=== PATIENT | female | born 2000 | race Caucasian/White ===

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

== ENCOUNTER 2020-04-22 11:35 | Inpatient (IN) | payer MEDICAID ==
[~2020-04-22] VITALS: Ht 157.5 cm; Wt 68.9 kg
[2020-04-22 12:00] VITALS: BP 140/90
[2020-04-22] MEDS ORDERED: LACTATED RINGERS 1,000 ML IV SCH (12:15)
[2020-04-22] MEDS ORDERED: BETAMETH ACET/BETAMETH NA PH 30 MG/5 ML VIAL IM SCH (12:15)
[2020-04-22] MEDS ORDERED: AMPICILLIN 2,000 MG in NACL 0.9% 100 ML IV SCH ×2 (12:15→12:22)
[2020-04-22] MEDS ORDERED: BETAMETH ACET/BETAMETH NA PH 30 MG/5 ML VIAL IM ONE (12:23)
[2020-04-22] MEDS ORDERED: AMPICILLIN 2,000 MG VIAL ONE (12:26)
[2020-04-22] MEDS ORDERED: MAG SULF 2000 MG/WATER PREMIX 100 ML IV ONE (12:34)
[2020-04-22] MEDS ORDERED: MAG SULF 20 GM/H2O PREMIX DRIP 500 ML IV SCH (12:35)
[2020-04-22] MEDS ORDERED: MAG SULF 2000 MG/WATER PREMIX 100 ML IV SCH (12:35)
[2020-04-22] MEDS ORDERED: NALBUPHINE 10 MG/ML AMP IVP PRN (12:50)
[2020-04-22] MEDS ORDERED: PROMETHAZINE 25 MG/ML VIAL ONE (12:51)
[2020-04-22] MEDS ORDERED: NALBUPHINE 10 MG/ML AMP ONE (12:51)
[2020-04-22] MEDS ORDERED: OXYTOCIN 20 UNITS/LR PREMIX 1,000 ML IV ONE (13:03)
[2020-04-22] MEDS ORDERED: PROMETHAZINE 25 MG/ML VIAL IM PRN (13:45)
[2020-04-22] MEDS ORDERED: OXYTOCIN 20 UNITS in LACTATED RINGERS 1,000 ML IV SCH (13:45)
[2020-04-22] MEDS ORDERED: METHYLERGONOVINE 0.2 MG/ML AMP IM PRN (14:10)
[2020-04-22] MEDS ORDERED: HYDROcodone/APAP 5/325 MG 1 TAB TAB PO PRN (14:10)
[2020-04-22] MEDS ORDERED: oxyCODONE/APAP 5/325 MG 1 TAB TAB PO PRN (14:10)
[2020-04-22] MEDS ORDERED: OXYTOCIN 10 UNITS/ML VIAL IM PRN (14:10)
[2020-04-22] MEDS ORDERED: IBUPROFEN 800 MG TAB PO PRN (14:10)
[2020-04-22] MEDS ORDERED: SODIUM PHOSPHATE 118 ML ENEM RC PRN (14:10)
[2020-04-22] MEDS ORDERED: TEMAZEPAM 15 MG CAP PO PRN (14:10)
[2020-04-22] MEDS ORDERED: BENZOCAINE/MENTHOL 20%-0.5% 60 GM CAN TP PRN (14:10)
[2020-04-22] MEDS ORDERED: METHYLERGONOVINE 0.2 MG TAB PO PRN (14:10)
[2020-04-22 14:23] LABS: ANION GAP 11.2 (8-16); BASOPHILS # (AUTO) 0.1 K/uL (0.00-0.22); BASOPHILS % (AUTO) 0.5 % (0.0-2.0); CARBON DIOXIDE 22.7 mmol/L (21-32); CREATININE 0.5 mg/dL (0.6-1.3); EOSINOPHILS # (AUTO) 0.1 K/uL (0-0.4); EOSINOPHILS % (AUTO) 0.5 % (0.0-4.0); HEMATOCRIT 28.1 % (36-48); LYMPHOCYTES # (AUTO) 1.5 K/uL (2.5-16.5); LYMPHOCYTES % (AUTO) 11.4 % (20.5-51.1); MEAN CORPUSCULAR HEMOGLOBIN 24 pg (27-31); MEAN CORPUSCULAR HGB CONC 32 g/dL (33-37); MEAN CORPUSCULAR VOLUME 73.7 fL (80-94); MONOCYTES # (AUTO) 0.5 K/uL (0.8-1.0); MONOCYTES % (AUTO) 3.5 % (1.7-9.3); NEUTROPHILS # (AUTO) 11.3 K/uL (1.8-7.7); NEUTROPHILS % (AUTO) 84.1 % (42.2-75.2); PLATELET COUNT (AUTO) 207 K/uL (140-450); POTASSIUM 3.9 mmol/L (3.5-5.1); RED BLOOD CELL COUNT(AUTO) 3.81 MIL/uL (4.20-5.40); RED CELL DISTRIBUTION WIDTH 17.9 % (11.6-13.7); WHITE BLOOD COUNT (AUTO) 13.5 K/uL (4.8-10.8)
[2020-04-22 14:39] LABS: ALBUMIN 2.4 g/dL (3.4-5.0); TOTAL BILIRUBIN 0.3 mg/dL (0.0-1.0)
[2020-04-22 15:21] LABS: APPEARANCE,URINE CLEAR (CLEAR); BILIRUBIN,URINE NEGATIVE (NEGATIVE); BLOOD, URINE NEGATIVE (NEGATIVE); COLOR,URINE YELLOW (YELLOW); LEUKOCYTE ESTERASE ,URINE NEGATIVE (NEGATIVE); NITRITE, URINE NEGATIVE (NEGATIVE); UGLUCOSE NEGATIVE (NEGATIVE)
[2020-04-22 15:43] LABS: BARBITURATE, URINE NEGATIVE ng/ml (NEG <=200); BENZODIAZEPINE, URINE NEGATIVE ng/mL (NEG <=200); CANNABINOID, URINE NEGATIVE ng/mL (NEG <=50); COCAINE, URINE NEGATIVE ng/mL (NEG <=300); OPIATE, URINE NEGATIVE ng/mL (NEG <=2000); PHENCYCLIDINE SCREEN,URINE NEGATIVE ng/mL (NEG <=25)
[2020-04-22] MEDS ORDERED: AMPICILLIN 1,000 MG in NACL 0.9% 50 ML IV SCH (16:00)
[2020-04-22] MEDS ORDERED: DOCUSATE SOD/SENNA 50/8.6 MG 1 TAB PO SCH (21:00)
[2020-04-23 06:03] LABS: HEMATOCRIT 25.5 % (36-48); HEMOGLOBIN 8.3 g/dL (12.0-16.0)
--- NOTE | 2020-04-23 08:27 | NUR ---
PATIENT HAS BEEN SCREENED AND CATEGORIZED LOW NUTRITION RISK. PATIENT WILL BE SEEN WITHIN 7 DAYS OF ADMISSION. 04/29/[address]
[2020-04-23 09:52] LABS: RAPID PLASMA REAGIN NON-REACTIVE (Non Reactiv)
== END 2020-04-23 11:10 | disposition home or self-care (01) | DRG 560 ==
LOC: MFCC 11:35 → OBSVTOIN 13:28
PROVIDERS: ADMIT Obstetrics & Gynecology; ATTEND Obstetrics & Gynecology
PROC: 10E0XZZ Delivery of Products of Conception, External Approach (ICD-10-PCS; principal; 2020-04-22)
DX: O60.14X0 Preterm labor third trimester with preterm delivery third trimester, not applicable or unspecified (principal); O42.913 Preterm premature rupture of membranes, unspecified as to length of time between rupture and onset of labor, third trimester; Z3A.33 33 weeks gestation of pregnancy; Z37.0 Single live birth
CPT/HCPCS: G0378 ×2; 36415; 59409; 80053; 80305; 81003; 85018; 85025; 86592; 86706; 86762; 86886; 86900; 86901; 88307; J0290; J0702; J2300; J2550; J2590; J3475; J7120

== ENCOUNTER 2022-10-30 21:10 | Inpatient (IN) | payer MEDICAID ==
[~2022-10-30] VITALS: Ht 157.5 cm; Wt 64.0 kg
[2022-10-30 21:30] VITALS: BP 126/82
[2022-10-30] MEDS ORDERED: METHYLERGONOVINE 0.2 MG/ML AMP IM PRN (21:45)
[2022-10-30] MEDS ORDERED: LACTATED RINGERS 500 ML IV SCH (21:45)
[2022-10-30] MEDS ORDERED: CARBOPROST 250 MCG/ML AMP IM PRN (21:45)
[2022-10-30] MEDS ORDERED: AMPICILLIN 2,000 MG in NACL 0.9% MINI-BAG PLUS 100 ML IV SCH (21:45)
[2022-10-30] MEDS ORDERED: NALBUPHINE 10 MG/ML AMP IVP PRN (21:45)
[2022-10-30 22:34] LABS: BASOPHILS % (AUTO) 0.4 % (0.0-2.0); EOSINOPHILS % (AUTO) 0.2 % (0.0-4.0); HEMATOCRIT 31.5 % (36-48); HEMOGLOBIN 10.3 g/dL (12.0-16.0); LYMPHOCYTES # (AUTO) 2.3 K/uL (2.5-16.5); LYMPHOCYTES % (AUTO) 25.7 % (20.5-51.1); MEAN CORPUSCULAR HEMOGLOBIN 25 pg (27-31); MEAN CORPUSCULAR HGB CONC 33 g/dL (33-37); MEAN CORPUSCULAR VOLUME 76.2 fL (80-94); MONOCYTES # (AUTO) 0.6 K/uL (0.8-1.0); MONOCYTES % (AUTO) 6.1 % (1.7-9.3); NEUTROPHILS # (AUTO) 6.1 K/uL (1.8-7.7); NEUTROPHILS % (AUTO) 67.6 % (42.2-75.2); PLATELET COUNT (AUTO) 233 K/uL (140-450); RED BLOOD CELL COUNT(AUTO) 4.13 MIL/uL (4.20-5.40); RED CELL DISTRIBUTION WIDTH 16.2 % (11.6-13.7); WHITE BLOOD COUNT (AUTO) 9.1 K/uL (4.8-10.8)
[2022-10-30] MEDS: LACTATED RINGERS 1,000 ML IV SCH ×2 (22:35→23:33)
[2022-10-30] MEDS ORDERED: AMPICILLIN 2,000 MG VIAL ONE (22:37)
[2022-10-30 22:51] LABS: ANION GAP 13.8 (8-16); CARBON DIOXIDE 22.8 mmol/L (21-32); CREATININE 0.7 mg/dL (0.6-1.3); POTASSIUM 3.6 mmol/L (3.5-5.1); PROTHROMBIN TIME 10.1 secs (10.8-13.4); TOTAL BILIRUBIN 0.3 mg/dL (0.0-1.0)
[2022-10-30 22:57] LABS: APPEARANCE,URINE CLEAR (CLEAR); BILIRUBIN,URINE NEGATIVE (NEGATIVE); BLOOD, URINE 3+ (NEGATIVE); COLOR,URINE YELLOW (YELLOW); LEUKOCYTE ESTERASE ,URINE 1+ (NEGATIVE); NITRITE, URINE NEGATIVE (NEGATIVE); UGLUCOSE NEGATIVE (NEGATIVE)
[2022-10-30 23:04] LABS: BARBITURATE, URINE NEGATIVE ng/ml (NEG <=200)
[2022-10-30 23:05] LABS: BENZODIAZEPINE, URINE NEGATIVE ng/mL (NEG <=200); CANNABINOID, URINE NEGATIVE ng/mL (NEG <=50); COCAINE, URINE NEGATIVE ng/mL (NEG <=300); OPIATE, URINE NEGATIVE ng/mL (NEG <=2000); PHENCYCLIDINE SCREEN,URINE NEGATIVE ng/mL (NEG <=25)
[2022-10-30] MEDS ORDERED: ROPIVACAINE 0.2%/NS PREMIX 200 ML EPI SCH (23:05)
[2022-10-31] MEDS ORDERED: OXYTOCIN 20 UNITS in LACTATED RINGERS 1,000 ML IV SCH (00:30)
[2022-10-31] MEDS ORDERED: OXYTOCIN 20 UNITS/LR PREMIX 1,000 ML IV ONE (00:41)
[2022-10-31] MEDS: LACTATED RINGERS 1,000 ML IV SCH (00:54)
--- NOTE | 2022-10-31 01:59 | NUR ---
CALLED TO BEDSIDE FOR DELIVERY. PATIENT DRUG TEST POSITIVE FOR METHAMPHETAMINE. REQUESTED FOR BEDSIDE ASSESSMENT OF . SUCTIONED WITH BULB. SECRETIONS WERE THIN WATERY, NICOLAS. HAD NO RESPIRATORY DISTRESS NOTED.
[2022-10-31] MEDS ORDERED: METHYLERGONOVINE 0.2 MG/ML AMP IM PRN (02:30)
[2022-10-31] MEDS ORDERED: METHYLERGONOVINE 0.2 MG TAB PO PRN (02:30)
[2022-10-31] MEDS ORDERED: MEASLES, MUMPS, AND RUBELLA 1 VIAL SQVAC ONE (02:30)
[2022-10-31] MEDS ORDERED: SODIUM PHOSPHATE 118 ML ENEM RC PRN (02:30)
[2022-10-31] MEDS ORDERED: OXYTOCIN 10 UNITS/ML VIAL IM PRN (02:30)
[2022-10-31] MEDS ORDERED: TEMAZEPAM 15 MG CAP PO PRN (02:30)
[2022-10-31] MEDS: oxyCODONE/APAP 5/325 MG 1 TAB TAB PO PRN ×3 (03:44→19:49)
[2022-10-31] MEDS ORDERED: AMPICILLIN 1,000 MG in NACL 0.9% MINI-BAG PLUS 50 ML IV SCH (04:00)
[2022-10-31] MEDS: IBUPROFEN 600 MG TAB PO PRN ×2 (06:20→16:13)
--- NOTE | 2022-10-31 09:33 | NUR ---
PATIENT HAS BEEN SCREENED AND CATEGORIZED LOW NUTRITION RISK. PATIENT WILL BE SEEN WITHIN 7 DAYS OF ADMISSION. 11/06/[address]
[2022-10-31] MEDS ORDERED: MEASLES, MUMPS, AND RUBELLA 1 VIAL SQVAC SCH (10:25)
[2022-10-31] MEDS ORDERED: DOCUSATE SOD/SENNA 50/8.6 MG 1 TAB PO SCH (21:00)
[2022-11-01] MEDS: oxyCODONE/APAP 5/325 MG 1 TAB TAB PO PRN ×2 (00:41→13:04)
[2022-11-01 05:36] LABS: HEMATOCRIT 30.3 % (36-48); HEMOGLOBIN 9.9 g/dL (12.0-16.0)
[2022-11-01] MEDS: IBUPROFEN 600 MG TAB PO PRN (07:59)
[2022-11-01] MEDS ORDERED: LACTATED RINGERS 1,000 ML IV ONE (10:45)
[2022-11-01] MEDS: LACTATED RINGERS 1,000 ML IV SCH (14:47)
[2022-11-01] MEDS ORDERED: DOCUSATE SOD/SENNA 50/8.6 MG 1 TAB PO SCH (21:00)
[2022-11-03 06:08] LABS: HEPATITIS B SURFACE ANTIGEN Negative (Negative)
== END 2022-11-02 11:00 | disposition home or self-care (01) | DRG 560 ==
LOC: MLD 21:10 → OBSVTOIN 21:43 → MFCC 10-31 07:30
PROVIDERS: ADMIT Obstetrics & Gynecology; ATTEND Obstetrics & Gynecology
PROC: 10E0XZZ Delivery of Products of Conception, External Approach (ICD-10-PCS; principal; 2022-10-31)
PROC: 3E0R3BZ Introduction of Anesthetic Agent into Spinal Canal, Percutaneous Approach (ICD-10-PCS; 2022-10-31)
PROC: 00HU33Z Insertion of Infusion Device into Spinal Canal, Percutaneous Approach (ICD-10-PCS; 2022-10-31)
DX: O77.0 Labor and delivery complicated by meconium in amniotic fluid (principal); Z37.0 Single live birth; Z20.822 Contact with and (suspected) exposure to COVID-19; Z3A.39 39 weeks gestation of pregnancy
CPT/HCPCS: 36415; 51702; 59409; 80053; 80305; 81001; 85018; 85025; 85610; 85730; 86592; 86762; 86886; 86900; 86901; 87086; 87340; 87653-90; J0290; J2300; J2590; J2795; J7120